=== PATIENT | female | born 1985 | race Caucasian/White ===

== ENCOUNTER → 2021-03-08 12:51 | Outpatient (CLI) | payer OTHER, SELFPAY ==
--- NOTE | ~2021-03-08 | XR_ITS ---
EXAMINATION: XR lumbar spine 2-3V DATE: 03/08/2021 13:18 INDICATION: Low back pain, unspecified. TECHNIQUE: 3 views of lumbar spine were obtained. COMPARISON: None. FINDINGS: There is 3 degrees dextrocurvature of lumbar spine. Vertebral body heights and intervertebr al disc heights are normal. The facet joints are unremarkable. Surgical clips in the right upper quad rant are likely from cholecystectomy. IMPRESSION: 1. No etiology for the patient's symptoms. Reviewed, dictated and finalized at location D. I[facility] ADMINISTRATOR
== END ==
PROVIDERS: PCP Family Medicine; Visit Provider Family Medicine
DX: M54.50 Low back pain, unspecified (principal)
CPT/HCPCS: 72100

== ENCOUNTER 2023-08-20 10:29 | Day surgery (SDC) | payer OTHER, SELFPAY ==
[2023-08-07 12:55] VITALS: BMI 23.1
[2023-08-09 08:46] VITALS: BMI 23.0
--- NOTE | 2023-08-20 07:05 | PM.HPGS ---
History of Present Illness History of Present Illness Consent: Risks, benefits, and alternatives have been discussed and questions answered. Patient agrees to proceed with procedure. Chief complaint: Change in Bowel Habits Narrative: Mallory Caro is a 38 year old female who has had alternating loose and hard stools.?She will have loose stools and then may not have a bowel movement for couple days and then become constipated.? On the day that she feels constipated she will have a hard stool followed immediately by many loose stools.? She does get some cramping in the lower abdomen at times but she has primarily a severe localized cramp in the left lower quadrant about once a month.? This may last 10 or 15 minutes or may last for hours.? Review of Systems Review of Systems: All systems reviewed & are unremarkable except as noted in HPI and below PMFSH Past Medical History Medical History Abdominal pain Anxiety Depression Surgical History Surgical History History of cholecystectomy Family History Family History Father Hypertension Social History Social History Smoking status: Never smoker Tobacco type: cigarettes Second hand tobacco smoke exposure: No Smoking end date: 03/11/04 Alcohol intake: current Alcohol use details: 2-4 drinks per month Substance use: never Substance use type: does not use Living arrangements: with family Occupation/Education: occupation Gender identity (if verbalized by the patient): Female Sexual Orientation (if Verbalized by the Patient): Straight or Heterosexual Spiritual care concerns: No Meds Home Medications and Allergies Home Medications Medication Instructions Recorded Confirmed Type norethindrone 1 mg-ethinyl 1 tablet PO DAILY #140 tabs 04/29/19 08/20/23 Rx estradiol 10 mcg (24)-iron 10 mcg(2) tablet (Lo Loestrin Fe) buspirone 5 mg tablet 5 mg PO BID PRN anxiety #180 tabs 05/08/23 08/20/23 Rx bupropion HCl 150 mg 24 hr tablet, 150 mg PO DAILY #90 tabs 05/29/23 08/20/23 Rx extended release Allergies Allergy/AdvReac Type Severity Reaction Status Date / Time No Known Allergies Allergy Verified 08/20/23 11:04 Exam Resp: Auscultation: clear to auscultation bilaterally Cardio: Rate: regular rate Rhythm: regular rhythm GI: GI Palp: Yes Soft to palpation and No Tenderness to palpation present (GI) Assessment and Plan Assessment and plan (1) Change in bowel habits: Code(s): R19.4 - Change in bowel habit Status: Acute Assessment and Plan: Colonoscopy with possible biopsy or polypectomy or cautery or injection of substances.
[2023-08-20 11:17] VITALS: BMI 22.6
[2023-08-20] MEDS: LACTATED RINGERS 1,000 ML 150 ML IV CONT (11:32)
--- NOTE | 2023-08-20 11:40 | P.PNAN_ITS ---
Anes - Initial Pre Proc Eval Procedure: Operation Date: 08/20/23 12:00 Proposed Procedures p Diagnostic Colonoscopy - Jayme James MD Date/Time: 08/20/23 11:40 Surgeon: Jayme James MD Pre Op Diagnosis: Change in Bowel Habits Patient Data Age: 38 Gender: F Height: 1.65 m Weight: 61.6 kg Allergies Allergy/AdvReac Type Severity Reaction Status Date / Time No Known Allergies Allergy Verified 08/20/23 11:04 Home Medications Medication Instructions Recorded Confirmed Type norethindrone 1 mg-ethinyl 1 tablet PO DAILY #140 tabs 04/29/19 08/20/23 Rx estradiol 10 mcg (24)-iron 10 mcg(2) tablet (Lo Loestrin Fe) buspirone 5 mg tablet 5 mg PO BID PRN anxiety #180 tabs 05/08/23 08/20/23 Rx bupropion HCl 150 mg 24 hr tablet, 150 mg PO DAILY #90 tabs 05/29/23 08/20/23 Rx extended release Patient hx anesthesia problems: none Family hx anesthesia problems: none Results Review: All pre-operative results and documents have been reviewed as part of the pre- operative evaluation. [facility] Past Medical History Medical History Abdominal pain Anxiety Depression Surgical History Surgical History (Updated 08/20/23 @ 11:40 by Hamilton Anne MD) History of cholecystectomy Family History Family History Father Hypertension Social History Social History Smoking status: Never smoker Tobacco type: cigarettes Second hand tobacco smoke exposure: No Smoking end date: 03/11/04 Alcohol intake: current Alcohol use details: 2-4 drinks per month Substance use: never Substance use type: does not use Living arrangements: with family Occupation/Education: occupation Gender identity (if verbalized by the patient): Female Sexual Orientation (if Verbalized by the Patient): Straight or Heterosexual Spiritual care concerns: No Anes - Eval Final PreProcedure Day of Procedure 08/20/23 11:40 Patient weight: normal Heart: regular rate and rhythm Lungs: clear to auscultation Airway: Mallampati scale class II Neurological: alert and oriented Last oral intake: >/= 8 hours ASA classification: II Emergent: no Anesthetic plan: proceed Anesthesia type and monitoring: general GIVS and standard monitoring Results Review: All pre-operative results and documents have been reviewed as part of the pre- operative evaluation. Informed Consent: The patient's anesthetic plan and its attendant risks and benefits were discussed with the patient/family/POA. Questions were solicited and answers provided to the satisfaction of the patient/family/POA.
[2023-08-20 12:12] VITALS: BP 107/93; PULSE 91; RESP 15; O2SAT 99
[2023-08-20 12:22] VITALS: BP 125/81; PULSE 86; RESP 16; O2SAT 100
[2023-08-20 12:32] VITALS: BP 122/82; PULSE 76; RESP 16; O2SAT 100
--- NOTE | 2023-08-20 12:40 | WPDANESPN ---
Anes - Prog Note Post-Op Date/Time: 08/20/23 12:40 Cardiovascular status: normal Respiratory status: normal Airway patency: baseline Mental status: baseline Post-Op hydration status: normal Vital Signs: Last Vital Signs Pulse 76 08/20/23 12:32 Resp 16 08/20/23 12:32 BP 122/82 08/20/23 12:32 Pulse Ox 100 08/20/23 12:32 O2 Del Method Room Air 08/20/23 12:32 Pain Score (VAS): 0/10 I/O: Intake & Output 08/19/23 08/20/23 08/20/23 23:59 07:59 15:59 Intake Total 700 Balance 700 Patient Feedback: Patient satisfied with anesthetic care.
== END 2023-08-20 12:35 | disposition home or self-care (01) ==
PROVIDERS: PCP Family Medicine; Visit Provider Internal Medicine Gastroenterology
PROC: 0DJD8ZZ Inspection of Lower Intestinal Tract, Via Natural or Artificial Opening Endoscopic (ICD-10-PCS; CPT 45378; principal; 2023-08-20 12:00)
DX: R19.4 Change in bowel habit (principal)
CPT/HCPCS: 45378

== ENCOUNTER 2023-12-28 10:52 | Outpatient (CLI) | payer OTHER, SELFPAY ==
[2023-12-28 11:27] LABS: Basophils Percent Auto 0.5 % (0.2-1.2); Eosinophils Absolute Auto 0.2 K/mm3 (0-0.3); Eosinophils Percent Auto 2.8 % (0-4.4); Hematocrit 37.5 % (37.0-47.0); Hemoglobin 12.9 g/dL (12.0-15.0); Immature Granulocyte Absolute 0.02 K/mm3 (0.00-0.031); Immature Granulocyte Percent A 0.3 % (0-0.5); Lymphocytes Absolute Auto 1.29 K/mm3 (0.9-3.2); Lymphocytes Percent Auto 22.2 % (18.3-44.2); Mean Corpuscular HGB Conc 34.4 g/dl (32-36); Mean Corpuscular Hemoglobin 30.7 pg (26-34); Mean Corpuscular Volume 89.3 fl (80-100); Mean Platelet Volume 10.7 fl (7.4-10.4); Monocytes Absolute Auto 0.8 K/mm3 (0.1-0.6); Monocytes Percent Auto 12.9 % (2.6-8.5); Neutrophils Absolute Auto 3.6 K/mm3 (1.3-6.7); Neutrophils Percent Auto 61.3 % (45.5-73.1); Platelet Count Result 221 k/mm3 (150-375); Red Cell Distribution Width 11.7 % (11.5-14.5); White Blood Count 5.8 K/mm3 (4.5-10.0)
== END 2023-12-28 10:53 | disposition home or self-care (01) ==
PROVIDERS: PCP Family Medicine; Visit Provider Obstetrics & Gynecology
DX: N81.4 Uterovaginal prolapse, unspecified (principal); Z01.818 Encounter for other preprocedural examination
CPT/HCPCS: 36415; 85025; 86850; 86900; 86901

== ENCOUNTER 2024-01-03 01:32 | Day surgery (SDC) | payer OTHER, SELFPAY ==
[2023-12-27 12:46] VITALS: BMI 22.8
--- NOTE | 2023-12-27 12:52 | PC.NURSE ---
Report to the Outpatient Waiting Room, entrance under the green pavilion located off [facility], at time _0930_ on date _[id number]_. Planned Procedure Time: _1130_.? Time changes happen often and if your time is changed the preop area will call you the afternoon before. - You and your visitor will be asked to self-screen and do not enter if you have any COVID symptoms. Please call surgeon if you need to reschedule. - A mask is optional within the hospital at this time. Patients may have clear liquids (water, carbonated beverages, clear teas, apple juice) until 3 hours prior to surgery with a maximum of 20 ounces. - No food from midnight until time of surgery and no smoking Take only the following medications with a SIP of water on the morning of surgery: __Bupropion, BC pill and if needed Buspirone and or Flonase. DO NOT STOP ANY OF YOUR OTHER PRESCRIPTION MEDICATIONS PRIOR TO SURGERY EXCEPT THE FOLLOWING Medications to discontinue per physician ___None Please no make-up, nail kinyarwanda, hairspray, perfume, deodorant, or body powder the day of surgery.? No jewelry (including any body piercings) or valuables the day of surgery, leave them at home.? Please take a shower or bath the night before, or the morning of, surgery with an antibacterial soap.? Wear comfortable, loose fitting clothing.? - Jewelry must be removed prior to entering the operating room.? Rings and piercings that are not removed may be cut off. - The hospital will not accept responsibility for valuables.? - Please leave all valuables, including medications, at home the day of surgery. If you are going home after surgery, a licensed road oiling truck driver must drive you home.? - NO public transportation without another adult if you receive anesthesia. - We recommend that an adult stay with you for 24 hours following discharge. - We also recommend that you do not drive, make important decision, drink alcoholic beverages, or take any drugs that were not prescribed by your health care provider for at least 24 hours after your discharge time. Follow any additional instructions given to you from your surgeon. Telephone instructions given to _Liz___and asked if any additional questions and then verbalized understanding. Patient advised to call surgeon office or pre surgery nurse liaison [phone] if any additional questions.
--- NOTE | 2024-01-02 07:24 | P.HP_ITS ---
H&P: HPI History of Present Illness Date/Time: 01/02/24 07:24 Chief Complaint: Excessive bleeding dyspareunia and pelvic pain Narrative: This is a 38-year-old female admitted for robotic hysterectomy bilateral kell pingectomy secondary to excessive bleeding pelvic pain and dyspareunia. Risks and benefits reviewed including exclusive , aspiration pneumonia bleeding, transfusion, perforation, bladder, ureters, or other internal organs with need for open laparotomy. She received the ACOG handout entitled hysterectomy as well as the Sathya. All questions were answered to her satisfaction. She asked to proceed PMFSH Past Medical History Medical History Abdominal pain Anxiety Depression Surgical History Surgical History History of cholecystectomy Family History Family History Father Hypertension Social History Social History Smoking status: Never smoker Tobacco type: cigarettes Second hand tobacco smoke exposure: No Smoking end date: 03/11/04 Alcohol intake: current Drinks per week: 1 Alcohol use details: 2-4 drinks per month Substance use: never Substance use type: does not use Living arrangements: with family Occupation/Education: occupation Gender identity (if verbalized by the patient): Female Sexual Orientation (if Verbalized by the Patient): Straight or Heterosexual Spiritual care concerns: No Meds Home Medications and Allergies Home Medications Medication Instructions Recorded Confirmed Type norethindrone 1 mg-ethinyl 1 tablet PO DAILY #140 tabs 04/29/19 12/27/23 Rx estradiol 10 mcg (24)-iron 10 mcg(2) tablet (Lo Loestrin Fe) bupropion HCl 150 mg 24 hr tablet, 150 mg PO DAILY #90 tabs 05/29/23 12/27/23 Rx extended release fluticasone propionate 50 1 spray intranasal DAILY PRN 12/27/23 12/27/23 History mcg/actuation nasal Allergy Symptoms spray,suspension (Flonase Allergy Relief) buspirone 5 mg tablet 5 mg PO BID PRN anxiety #180 tabs 12/30/23 Rx Allergies Allergy/AdvReac Type Severity Reaction Status Date / Time No Known Allergies Allergy Verified 12/27/23 12:45 Exam Const: General: cooperative, healthy appearing, comfortable and average body habitus Orientation/consciousness: oriented to person, oriented to place and oriented to time HENMT: Head: normal to inspection Resp: Effort & Inspection: normal respiratory effort Cardio: Rate: regular rate Rhythm: regular rhythm Heart sounds: S1 normal heart sound present and S2 normal heart sound present GI: Inspection: normal to inspection : External Female Exam: normal external appearance Speculum Exam - Vagina: normal appearance of the vagina Speculum Exam - Cervix: normal appearance of the cervix (Second-degree prolapse) Bimanual exam- vagina & uterus: enlarged and Uterine tenderness Bimanual Exam- Adnexa, other: normal adnexae Assessment and Plan Assessment and plan (1) Excessive bleeding: Code(s): R58 - Hemorrhage, not elsewhere classified Status: Acute (2) Pelvic pain: Code(s): R10.2 - Pelvic and perineal pain Status: Acute Assessment and Plan: Robotic total vaginal hysterectomy salpingectomy
[2024-01-03] VITALS (14 sets, daily range): BP systolic 115–143; BP diastolic 49–86; PULSE 70–99; RESP 12–20; TEMP 36.2–36.7; O2SAT 98–100
--- NOTE | 2024-01-03 06:30 | WPDHPUPDATE1 ---
History and Physical Update Update Date/Time: 01/03/24 06:30 History and Physical has been reviewed, including an updated exam of the patient. There are NO changes in the patient's condition. Risks, benefits, and alternatives have been discussed and questions answered. Patient agrees to proceed with procedure.
[2024-01-03] MEDS: ACETAMINOPHEN 500 MG TABLET 1000 MG PO ×3 (10:05→22:25)
--- NOTE | 2024-01-03 10:09 | P.PNAN_ITS ---
Anes - Initial Pre Proc Eval Procedure: Operation Date: 01/03/24 11:30 Proposed Procedures p Robotic Assisted Total Vaginal Hysterectomy with Bilateral Salpingectomy - Hamilton Zaidi MD Date/Time: 01/03/24 10:09 Surgeon: Hamilton Zaidi MD Pre Op Diagnosis: Uterine Prolapse, Exessive Bleeding Patient Data Age: 38 Gender: F Height: 1.65 m Weight: 62.3 kg Allergies Allergy/AdvReac Type Severity Reaction Status Date / Time No Known Allergies Allergy Verified 01/03/24 09:48 Home Medications Medication Instructions Recorded Confirmed Type norethindrone 1 mg-ethinyl 1 tablet PO DAILY #140 tabs 04/29/19 12/27/23 Rx estradiol 10 mcg (24)-iron 10 mcg(2) tablet (Lo Loestrin Fe) bupropion HCl 150 mg 24 hr tablet, 150 mg PO DAILY #90 tabs 05/29/23 01/03/24 Rx extended release fluticasone propionate 50 1 spray intranasal DAILY PRN 12/27/23 01/03/24 History mcg/actuation nasal Allergy Symptoms spray,suspension (Flonase Allergy Relief) buspirone 5 mg tablet 5 mg PO BID PRN anxiety #180 tabs 12/30/23 01/03/24 Rx hydrocodone 5 mg-acetaminophen 325 1 tablet PO Q4H PRN pain #20 tabs 01/03/24 Rx mg tablet Patient hx anesthesia problems: none and other (Pt reports that she was emotio nal on emergence after GA approx 20 years ago. ) Family hx anesthesia problems: none Results Review: All pre-operative results and documents have been reviewed as part of the pre- operative evaluation. [facility] Past Medical History Medical History Abdominal pain Anxiety Depression Surgical History Surgical History History of cholecystectomy Family History Family History Father Hypertension Social History Social History Smoking status: Never smoker Tobacco type: cigarettes Second hand tobacco smoke exposure: No Smoking end date: 03/11/04 Alcohol intake: current Drinks per week: 1 Alcohol use details: 2-4 drinks per month Substance use: never Substance use type: does not use Living arrangements: with family Occupation/Education: occupation Gender identity (if verbalized by the patient): Female Sexual Orientation (if Verbalized by the Patient): Straight or Heterosexual Spiritual care concerns: No Anes - Eval Final PreProcedure Day of Procedure 01/03/24 10:09 Patient weight: normal Heart: regular rate and rhythm Lungs: clear to auscultation Airway: Mallampati scale class II Neurological: alert and oriented Last oral intake: >/= 8 hours ASA classification: I Emergent: no Anesthetic plan: proceed Anesthesia type and monitoring: general ETT and standard monitoring Results Review: All pre-operative results and documents have been reviewed as part of the pre- operative evaluation. Active, can walk 1 mile without cp or sob. Informed Consent: The patient's anesthetic plan and its attendant risks and benefits were discussed with the patient/family/POA. Questions were solicited and answers provided to the satisfaction of the patient/family/POA.
[2024-01-03] MEDS: LACTATED RINGERS 1,000 ML 30 ML IV CONT ×2 (10:20→12:29)
[2024-01-03] MEDS: KETOROLAC 15 MG/ML VIAL (*BKC) IV PUSH (10:30)
[2024-01-03 10:38] LABS: BEDSIDEPREGUCG Negative (Negative)
[2024-01-03] MEDS: ceFAZolin 2 GM/D5W 50 ML 2 GM/50 ML BAG IVPB (10:49)
--- NOTE | 2024-01-03 11:46 | W.PM.PROC2 ---
Procedure Note - Detailed Date of Procedure 01/03/24 Pre-op Diagnosis Uterine Prolapse, Exessive Bleeding Post-op Diagnosis Same Procedure Performed Robotic total vaginal hysterectomy and bilateral salpingectomy Surgeon Hamilton Zaidi MD Anesthesia General Indications 38-year-old female with uterine prolapse pelvic pain and excessive heavy bleeding refractory to medical therapy Findings enlarged uterus. Normal-appearing tubes and ovaries bilaterally Description of Procedure patient was prepped draped normal sterile fashion placed dorsal lithotomy position. Under excellent general endotracheal anesthesia weighted speculum placed in posterior fornix vagina. Anterior lip of the cervix grasped with single-tooth tenaculum. Uterus sounded to 10cm. Serial dilatation with fragmented dilators performed followed by passage of the 8. MEDINA and 3. Cold cup. Next the 16 [place] catheter was placed in the bladder and drained of clear urine the weighted speculum and single-tooth removed and the gloves were changed. A supraumbilical incision made the Veress needle passed in the abdomen. Abdomen filled with CO2 gas [id number]. The 8mm trocar advanced in the abdomen. Downside visualized no injury seen. Patient placed in Trendelenburg and right left lateral quadrant incisions made. 8Mm trocars advanced under direct visualization assuring no injury. Right upper quadrant incision made the 8mm trocar advanced under direct visualization assuring no injury. The robot was docked. Attention was turned to the christian counselor. The left round ligament was grasped, burned, cut. Anteriorly using sharp dissection a bladder flap was formed and retracting the bladder caudally away from the cervix uterus the opposite round ligament which was clamped, burned, cut. Next the fallopian tube was skeletonized and sharply dissected away from the ovarian complex leaving it attached to the uterine origin. In similar fashion on the right the fallopian tube was sharply dissected away from ovarian complex and left attached to the uterine origin. The utero-ovarian ligament was then skeletonized in order to conserve the left ovary this was clamped, burned, cut and brought to the level of previously cut round ligament. In similar fashion conserving the right ovary, the utero-ovarian ligament was clamped, burned, cut and brought to the level of the previously cut round ligament. The cardinal broad ligaments on the left were then serially skeletonized clamping burning cutting and hugging the cervix and uterus until the uterine vessels could be seen on the left these were large and tortuous they were individually clamped, burned, cut. In similar fashion on the right the cardinal broad ligaments were skeletonized clamping burning cutting and hugging the cervix uterus until the uterine vessels could be seen on the right these were large and tortuous as well and were individually clamped, burned, cut. Blanching the uterus was noted and a colpotomy incision made. Cervix uterus tubes removed through the vagina. The vagina then closed with continuous running 0V lock from lateral edge to lateral edge back to midline. Irrigation undertaken blood loss estimated 25cc hemostasis was assured in the robot was undocked. The gas removed from the abdomen the trocars removed. The incisions then closed with 4 Monocryl and glue. The patient was awakened went recovery in satisfactory condition. All sponge, needle, instrument counts were correct. There were no immediate complications Estimated Blood Loss 25 Drains No Packing No Pathology Yes Complications No immediate complications Condition Stable Disposition PACU
--- NOTE | 2024-01-03 11:51 | PM.DS ---
DS: Admitting Diagnosis Discharge Date 01/04/2024 Admitting Diagnosis uterine prolapse/pelvic pain/excessive DS: Discharge Diagnosis Discharge Diagnosis (1) Pelvic pain: Code(s): R10.2 - Pelvic and perineal pain Status: Acute (2) Excessive bleeding: Code(s): R58 - Hemorrhage, not elsewhere classified Status: Acute DS: Summary Hospital Course Reason for hospitalization: patient was admitted for robotic total vaginal hysterectomy bilateral salpingectomy on 01/03/2024. The procedure itself was unremarkable. Hospital Course: Patient's hospital course was unremarkable. She remained afebrile. She was up, voiding without difficulty, ambulating eating regular diet, and generally without complaints. Time Spent with Patient Time attestation: Total time spent providing and/or coordinating discharge services: Exam Const: General: cooperative, healthy appearing and comfortable Orientation/consciousness: oriented to person, oriented to place and oriented to time Resp: Effort & Inspection: normal respiratory effort Cardio: Rate: regular rate Rhythm: regular rhythm Heart sounds: S1 normal heart sound present and S2 normal heart sound present GI: Inspection: normal to inspection and incision ( wound are clean dry and intact) DS: Data Data Completed and Pending Pending studies at discharge: Pending at discharge 01/03/24 11:38 Surgical [PTH] Routine Labs on day of discharge: Labs from last 24 hours 01/03/24 10:33 POC Urine HCG, Qual Negative Discharge Plan Discharge Patient Disposition: Home, Self-Care Stand Alone Forms: General Discharge Instructions Follow-up/Referrals: Hamilton Sosa MD [Physician] - Discharge Medications: New hydrocodone-acetaminophen 5-325 mg tablet 1 tablet PO Q4H PRN (Reason: pain) Qty: 20 0RF No Action Lo Loestrin Fe 1 mg-10 mcg (24)/10 mcg (2) tablet 1 tablet PO DAILY Qty: 140 0RF fluticasone propionate [Flonase Allergy Relief] 50 mcg/actuation [place],Suspension 1 spray INTRANASAL DAILY PRN (Reason: Allergy Symptoms) Rx Instructions: administer into each nostril bupropion HCl 150 mg tablet extended release 24 hr 150 mg PO DAILY Qty: 90 1RF buspirone 5 mg tablet 5 mg PO BID PRN (Reason: anxiety) Qty: 180 3RF
[2024-01-03] MEDS: ONDANSETRON INJ 4 MG/2 ML VIAL IV PUSH (12:20)
[2024-01-03] MEDS: diphenhydrAMINE HCl INJ 50 MG/ML VIAL 12.5 MG IV PUSH (12:28)
[2024-01-03] MEDS: fentaNYL CITRATE INJ (*CRX) 100 MCG/2 ML VIAL 25 MCG IV PUSH ×9 (12:38→13:44)
[2024-01-03] MEDS: HYDROmorphone HCL INJ (*CRX) 1 MG/ML SYR 0.25 MG IV PUSH ×2 (13:32→13:42)
--- NOTE | 2024-01-03 13:48 | ADMGEN ---
This patient, Mallory Caro, was admitted to OB 2nd Floor Room 284-00. Patient/family oriented to hospital policies and general routines including ID bracelet, bed and alarms, visiting hours, pain management, procedures, bathroom and other care routines, personal items, smoking policy, room service/diet, and visiting hours. Information on how to activate the Rapid Response Team has been discussed. Patient/Family are encouraged to report perceived risks to care and to ask questions if they do not understand what they are told or what they should do.
[2024-01-03] MEDS: DEXTROSE 5%/LACTATED RINGERS 1,000 ML 125 ML IV CONT (14:05)
[2024-01-03] MEDS: oxyCODONE HCL (*CRX) 5 MG TAB IR PO ×3 (14:28→23:30)
[2024-01-03] MEDS: KETOROLAC 30 MG/ML VIAL (*BKC) IV PUSH ×2 (16:11→22:25)
[2024-01-03] MEDS: SIMETHICONE 80 MG TAB.CHEW PO ×2 (16:12→22:25)
[2024-01-03] MEDS: DOCUSATE SODIUM 100 MG CAPSULE PO (16:12)
[2024-01-04] MEDS: ACETAMINOPHEN 500 MG TABLET 1000 MG PO ×2 (04:25→10:33)
[2024-01-04] MEDS: oxyCODONE HCL (*CRX) 5 MG TAB IR PO ×2 (04:25→08:42)
[2024-01-04 04:30] VITALS: BP 130/82; PULSE 74; RESP 18; TEMP 36.6
[2024-01-04] MEDS: KETOROLAC 30 MG/ML VIAL (*BKC) IV PUSH (04:40)
[2024-01-04 05:34] LABS: Basophils Percent Auto 0.2 % (0.2-1.2); Eosinophils Percent Auto 0.1 % (0-4.4); Hemoglobin 12.2 g/dL (12.0-15.0); Immature Granulocyte Absolute 0.06 K/mm3 (0.00-0.031); Immature Granulocyte Percent A 0.4 % (0-0.5); Lymphocytes Absolute Auto 1.29 K/mm3 (0.9-3.2); Lymphocytes Percent Auto 9.2 % (18.3-44.2); Mean Corpuscular HGB Conc 33.9 g/dl (32-36); Mean Corpuscular Hemoglobin 30.7 pg (26-34); Mean Corpuscular Volume 90.5 fl (80-100); Mean Platelet Volume 11.4 fl (7.4-10.4); Monocytes Absolute Auto 1.4 K/mm3 (0.1-0.6); Neutrophils Absolute Auto 11.2 K/mm3 (1.3-6.7); Neutrophils Percent Auto 80.1 % (45.5-73.1); Platelet Count Result 219 k/mm3 (150-375); Red Blood Count 3.98 M/mm3 (4.2-5.4); Red Cell Distribution Width 11.4 % (11.5-14.5)
[2024-01-04 08:15] VITALS: BP 124/80; PULSE 80; RESP 18; TEMP 37.2; O2SAT 100
[2024-01-04] MEDS: ENOXAPARIN 40 MG/0.4 ML SYRINGE SUB-Q (08:39)
[2024-01-04] MEDS: SIMETHICONE 80 MG TAB.CHEW PO (08:39)
[2024-01-04] MEDS: DOCUSATE SODIUM 100 MG CAPSULE PO (08:39)
--- NOTE | 2024-01-04 09:11 | WPDANESPN ---
Anes - Prog Note Post-Op Date/Time: 01/04/24 09:11 Cardiovascular status: normal Respiratory status: normal Airway patency: baseline Mental status: baseline Post-Op hydration status: normal Vital Signs: Last Vital Signs Temp 37.2 C 01/04/24 08:15 Pulse 80 01/04/24 08:15 Resp 18 01/04/24 08:15 BP 124/80 01/04/24 08:15 Pulse Ox 100 01/04/24 08:15 O2 Del Method Room Air 01/04/24 04:30 O2 Flow Rate 10 01/03/24 12:30 Pain Score (VAS): 05/18 I/O: Intake & Output 01/03/24 01/04/24 01/04/24 23:59 07:59 15:59 Intake Total 1300 Output Total 675 Balance 625 Laboratory Tests 01/04/24 04:33 01/03/24 01/04/24 10:33 04:33 WBC 14.0 H RBC 3.98 L Hgb 12.2 Hct 36.0 L MCV 90.5 MCH 30.7 MCHC 33.9 RDW 11.4 L Plt Count 219 MPV 11.4 H Immature Gran % (Auto) 0.4 Neut % (Auto) 80.1 H Lymph % (Auto) 9.2 L [place] % (Auto) 10.0 H Eos % (Auto) 0.1 Baso % (Auto) 0.2 Lymph # (Auto) 1.29 [place] # (Auto) 1.4 H Eos # (Auto) 0.0 Baso # (Auto) 0.0 Abs Immat Gran (auto) 0.06 H Absolute Neuts (auto) 11.2 H Absolute Nucleated RBC 0.000 Nucleated RBC % 0.0 POC Urine HCG, Qual Negative Post-procedural complaints: nausea (after procedure, patient states nausea has resolved this morning ) Patient Feedback: Patient satisfied with anesthetic care.
[2024-01-04] MEDS: IBUPROFEN 600 MG TABLET PO (10:33)
--- NOTE | 2024-01-04 11:05 | PM.GYNPNOP ---
HUMAN RESOURCES DIRECTOR - A/P Assessment and plan (1) Pelvic pain: Code(s): R10.2 - Pelvic and perineal pain Status: Acute Assessment and Plan: A: POD#1, doing well. P: Home to f/u 2 weeks. (2) Excessive bleeding: Code(s): R58 - Hemorrhage, not elsewhere classified Status: Acute Postoperative Procedures: Procedures Operation Date: 01/03/24 11:30 Actual Procedure Side Surgeon p Robotic Assisted Total Vaginal Hysterectomy with Bilateral Salpingectomy Bilateral Hamilton Zaidi MD Time Spent With Patient Time with patient: less than 15 minutes HUMAN RESOURCES DIRECTOR- PN:Subj Post-Op Subjective Date/time seen: 01/04/24 11:05 Interval history: Pain OK. Tolerating diet. Voiding. Would like to go home. Exam Narrative: AVSS I/O OK ABD soft, nontender. Incisions c/d/i. EXT nontender HUMAN RESOURCES DIRECTOR - PN: Obj Data Vital Signs Vital Signs: Vital Signs - 24 hr 01/03/24 11:59 01/03/24 12:06 01/03/24 12:15 Temperature Pulse Rate 77 79 79 Respiratory Rate 14 14 14 Blood Pressure 118/65 121/71 115/67 Pulse Oximetry 100 100 100 Oxygen Delivery Simple Face Mask Simple Face Mask Simple Face Mask Oxygen Flow Rate 10 10 10 01/03/24 12:30 01/03/24 12:45 01/03/24 13:00 Temperature Pulse Rate 73 76 85 Respiratory Rate 12 12 12 Blood Pressure 118/49 L 131/86 125/65 Pulse Oximetry 100 99 100 Oxygen Delivery Simple Face Mask Room Air Room Air Oxygen Flow Rate 10 01/03/24 13:15 01/03/24 12:40 01/03/24 13:30 Temperature Pulse Rate 77 84 Respiratory Rate 12 12 Blood Pressure 118/68 126/84 Pulse Oximetry 99 100 99 Oxygen Delivery Room Air Room Air Room Air Oxygen Flow Rate 01/03/24 13:45 01/03/24 14:00 01/03/24 13:55 Temperature 36.4 C L Pulse Rate 84 76 Respiratory Rate 20 16 Blood Pressure 118/67 126/62 Pulse Oximetry 99 99 Oxygen Delivery Room Air Room Air Oxygen Flow Rate 01/03/24 19:15 01/03/24 19:15 01/03/24 23:30 Temperature 36.7 C 36.2 C L Pulse Rate 75 70 Respiratory Rate 18 18 Blood Pressure 120/74 115/68 Pulse Oximetry 98 99 Oxygen Delivery Room Air Oxygen Flow Rate 01/04/24 04:30 01/04/24 04:30 01/04/24 08:15 Temperature 36.6 C 37.2 C Pulse Rate 74 80 Respiratory Rate 18 18 Blood Pressure 130/82 124/80 Pulse Oximetry 100 Oxygen Delivery Room Air Oxygen Flow Rate Intake/Output Intake/Output: Intake & Output 01/01/24 01/02/24 01/03/24 01/04/24 23:59 23:59 23:59 23:59 Intake Total 1550 240 Output Total 675 Balance 875 240 Meds/Results Medications: Active Medications Generic Name Dose Route Start Last Admin Trade Name Freq PRN Reason Stop Dose Admin Acetaminophen 1,000 mg 01/03/24 13:48 01/04/24 10:33 Acetaminophen 500 Mg Tablet PO 1,000 mg Q6HR GALO Administration Docusate Sodium 100 mg 01/03/24 17:00 01/04/24 08:39 Docusate Sodium 100 Mg Capsule PO 100 mg BID GALO Administration Enoxaparin Sodium 40 mg 01/04/24 09:00 01/04/24 08:39 Enoxaparin 40 Mg/0.4 Ml Syringe SUB-Q 40 mg DAILY GALO Administration Ibuprofen 600 mg 01/04/24 06:00 01/04/24 10:33 Ibuprofen 600 Mg Tablet PO 600 mg Q6HR GALO Administration Naloxone HCl 0.1 mg 01/03/24 13:48 Naloxone Hcl 0.4 Mg/Ml Vial IV PUSH Q2M PRN Respiratory rate less than 10 Ondansetron HCl 4 mg 01/03/24 13:48 Ondansetron Inj 4 Mg/2 Ml Vial IV PUSH Q6H PRN Nausea And Vomiting Oxycodone HCl 5 mg 01/03/24 13:48 01/04/24 08:42 Oxycodone Hcl (*Crx) 5 Mg Tab Ir PO 5 mg Q4H PRN Administration Pain Rated 4-6 Oxycodone HCl 10 mg 01/03/24 13:48 Oxycodone Hcl (*Crx) 5 Mg Tab Ir PO Q6H PRN Pain Rated 7-10 Simethicone 80 mg 01/03/24 13:48 01/04/24 08:39 Simethicone 80 Mg Tab.Chew PO 80 mg TIDWM GALO Administration Labs 01/04/24 04:33 Labs: Laboratory Results - last 24 hr 01/04/24 04:33 WBC 14.0 H RBC 3.98 L Hgb 12.2 Hct 36.0 L MCV 90.5 MCH 30.7 MCHC 33.9 RDW 11.4 L Plt Count 219 MPV 11.4 H Immature Gran % (Auto) 0.4 Neut % (Auto) 80.1 H Lymph % (Auto) 9.2 L [place] % (Auto) 10.0 H Eos % (Auto) 0.1 Baso % (Auto) 0.2 Lymph # (Auto) 1.29 [place] # (Auto) 1.4 H Eos # (Auto) 0.0 Baso # (Auto) 0.0 Abs Immat Gran (auto) 0.06 H Absolute Neuts (auto) 11.2 H Absolute Nucleated RBC 0.000 Nucleated RBC % 0.0
--- NOTE | 2024-01-04 11:07 | PM.DS ---
DS: Admitting Diagnosis Discharge Date 01/04/24 Admitting Diagnosis Pelvic pain Excessive bleeding DS: Discharge Diagnosis Discharge Diagnosis (1) Pelvic pain: Code(s): R10.2 - Pelvic and perineal pain Status: Acute (2) Excessive bleeding: Code(s): R58 - Hemorrhage, not elsewhere classified Status: Acute DS: Summary Hospital Course Hospital Course: Admitted on the date of scheduled surgery. See op note. She did well and was able to go home on POD1. Time Spent with Patient Time attestation: Total time spent providing and/or coordinating discharge services: DS: Data Data Completed and Pending Pending studies at discharge: Pending at discharge 01/03/24 11:38 Surgical [PTH] Routine Labs on day of discharge: Labs from last 24 hours 01/04/24 04:33 WBC 14.0 H RBC 3.98 L Hgb 12.2 Hct 36.0 L MCV 90.5 MCH 30.7 MCHC 33.9 RDW 11.4 L Plt Count 219 MPV 11.4 H Immature Gran % (Auto) 0.4 Neut % (Auto) 80.1 H Lymph % (Auto) 9.2 L [place] % (Auto) 10.0 H Eos % (Auto) 0.1 Baso % (Auto) 0.2 Lymph # (Auto) 1.29 [place] # (Auto) 1.4 H Eos # (Auto) 0.0 Baso # (Auto) 0.0 Abs Immat Gran (auto) 0.06 H Absolute Neuts (auto) 11.2 H Absolute Nucleated RBC 0.000 Nucleated RBC % 0.0 Discharge Plan Discharge Patient Disposition: Home, Self-Care Discharge Instructions: Nothing in the vagina for 6 weeks. Call or return if temperature above 100.4? F, increased abdominal pain, increased vaginal bleeding or any new problems. Stand Alone Forms: General Discharge Instructions Follow-up/Referrals: Hamilton Sosa MD [Physician] - 2 Weeks Discharge Medications: New hydrocodone-acetaminophen 5-325 mg tablet 1 tablet PO Q4H PRN (Reason: pain) Qty: 20 0RF Continued fluticasone propionate [Flonase Allergy Relief] 50 mcg/actuation [place],Suspension 1 spray INTRANASAL DAILY PRN (Reason: Allergy Symptoms) Rx Instructions: administer into each nostril bupropion HCl 150 mg tablet extended release 24 hr 150 mg PO DAILY Qty: 90 1RF buspirone 5 mg tablet 5 mg PO BID PRN (Reason: anxiety) Qty: 180 3RF Discontinued Lo Loestrin Fe 1 mg-10 mcg (24)/10 mcg (2) tablet 1 tablet PO DAILY Qty: 140 0RF
== END 2024-01-04 12:07 | disposition home or self-care (01) ==
LOC: ANHSURGERY 09:38 → ANHOB2 13:52
PROVIDERS: PCP Family Medicine; Visit Provider Obstetrics & Gynecology
PROC: (CPT 58552; principal; 2024-01-03 11:30)
DX: N81.4 Uterovaginal prolapse, unspecified (principal); N93.9 Abnormal uterine and vaginal bleeding, unspecified; N88.8 Other specified noninflammatory disorders of cervix uteri; N94.10 Unspecified dyspareunia; F41.9 Anxiety disorder, unspecified; F32.A Depression, unspecified; Z87.891 Personal history of nicotine dependence
CPT/HCPCS: 58552; S2900; 36415; 85025; 88307; A9270; J0690; J1100; J1171; J1200; J1650; J1885; J2003; J2250; J2405; J2704; J3010; J7030; J7120; J7121